=== PATIENT | female | born 1975 | race Caucasian/White ===

== ENCOUNTER → 2022-09-01 09:35 | Outpatient (BNVA) | payer BC, SELFPAY | PROVIDERS: Visit Provider Emergency Medicine | DX: J45.21 Mild intermittent asthma with (acute) exacerbation (principal); R09.02 Hypoxemia | CPT/HCPCS: 71046 ==

== ENCOUNTER 2022-09-01 11:14 | Emergency (ER) | payer BC, SELFPAY ==
[2022-09-01] VITALS (13 sets, daily range): BP systolic 99–116; BP diastolic 52–79; PULSE 90–102; RESP 18–23; TEMP 37.1; O2SAT 89–97; BMI 25.7
[2022-09-01] MEDS: ipratropium-albuterol 3 mL Neb INHALATION (16:37)
[2022-09-01] MEDS: albuterol 2.5 mg/3 mL Neb INHALATION (16:37)
--- NOTE | 2022-09-01 16:39 | ED_ITS ---
HPI - SOB/Dyspnea General: Chief Complaint: Shortness of Breath/Dyspnea Stated Complaint: clinic sent for low O2 Time Seen by Provider: 09/01/22 16:11 History of Present Illness: HPI Narrative: Patient comes in with shortness of breath and asthma exacerbation. States that she had a cold last week, then yesterday into today developed significant shortness of breath. Was seen at the clinic where she had an x-ray done and was told she had a viral illness. She was also hypoxic and referred to the emergency department. On my examination I turned off the supplemental oxygen and her sats remained in the mid 90s on room air throughout the exam. Associated symptoms: Deny abdominal pain, chest pain, fever(s), nausea, p alpitations, polyuria or vomiting Review of Systems Const: Denies: fever(s) or body aches Eyes: Denies: change in vision or blurry vision ENMT: Denies: throat pain or odynophagia Card: Denies: chest pain or palpitations Resp: Reports: dyspnea and productive cough GI: Denies: abdominal pain, nausea or vomiting : Denies: flank pain or dysuria Musc: Denies: neck pain or back pain Skin/Breast: Denies: rash or pruritus Neuro: Denies: headache(s) or numbness in extremities Psych: Denies: anxiety or change in appetite Endo: Denies: polyuria or excessive sweating PFSH ED PFSH: Medical History Asthma Social History Smoking and tobacco status: never smoked Alcohol intake: never Female Reproductive History: Spontaneous abortions: No Physical Exam Const: COMMON NORMALS: no acute distress, patient oriented x3, healthy appe aring and alert HENMT: COMMON NORMALS: normocephalic and atraumatic HEAD & SCALP: normocephalic and atraumatic Eye: COMMON NORMALS: Equal, round and reactive pupils present and EOMs intact bilaterally PUPIL: Yes Equal, round and reactive pupils present Neck/C-Spine: COMMON NORMALS: full ROM and supple Resp: COMMON NORMALS: normal respiratory effort, No retractions and No use of accessory muscles OTHER: Crackles in the right lower lung Cardio: COMMON NORMALS: regular rate and regular rhythm RATE: regular rate RHYTHM: regular rhythm GI: COMMON NORMALS: Normal to inspection, nondistended, normoactive bowel sounds present, Soft to palpation and non-tender PALPATION: Yes Soft to palpation Back/Pelvis: COMMON NORMALS: thoracic and lumbar spine normal to inspection and no thoracic nor lumbar tenderness Extremity: COMMON NORMALS: normal to inspection and full ROM Neuro: COMMON NORMALS: patient oriented x3 SENSORIUM/ORIENTATION: Yes alert Psych: COMMON NORMALS: mental status grossly normal and cooperative Skin: COMMON NORMALS: no rashes or lesions noted and no wounds GENERAL SKIN EXAM: no rashes or lesions noted Course Vital Signs: Vital signs: Vital Signs Temperature 98.7 F 09/01/22 11:19 Pulse Rate 97 09/01/22 16:45 Respiratory Rate 18 09/01/22 16:38 Blood Pressure 100/68 09/01/22 13:56 Pulse Oximetry 93 09/01/22 16:38 Oxygen Delivery Me thod 09/01/22 16:38 Oxygen Flow Rate 3 09/01/22 13:56 MDM - SOB/Dyspnea Medical Decision Making Patient comes in with shortness of breath and asthma exacerbation. States that she had a cold last week, then yesterday into today developed significant shortness of breath. Was seen at the clinic where she had an x-ray done and was told she had a viral illness. She was also hypoxic and referred to the emergency department. On my examination I return to the supplemental oxygen off and her sats remained in the mid 90s on room air throughout the exam. She has crackles in her right lung on auscultation. We will check labs, give neb treatment, steroids, review the x-ray, and reassess. I reviewed the patient's x-ray I am concerned that she has pneumonia in her right lower lung. We will start antibiotics and reassess. On reassessment I talked to the patient about the test results. We will continue antibiotics and discharge with precautions return for worsening or changing symptoms. Her oxygen saturations have been 92 to 93% on room air here throughout her stay. Lab Data 09/01/22 17:20 09/01/22 17:20 Labs/Radiology: Laboratory Results WBC 28.0 10^3/uL (4.0-10.0) H 09/01/22 17:20 RBC 4.77 10^6/uL (4.1-5.3) 09/01/22 17:20 Hgb 15.0 g/dL (11.5-15.3) 09/01/22 17:20 Hct 45.6 % (37.0-47.0) 09/01/22 17:20 MCV 95.6 fl (81-99) 09/01/22 17:20 MCH 31.4 pg (28.0-34.0) 09/01/22 17:20 MCHC 32.9 g/dL (30.0-36.0) 09/01/22 17:20 RDW 12.4 % (12.1-15.1) 09/01/22 17:20 Plt Count 246 10^3/cmm (130-400) 09/01/22 17:20 MPV 10.0 fL (7.4-10.4) 09/01/22 17:20 Neut % (Auto) 88.9 % 09/01/22 17:20 Lymph % (Auto) 6.9 % 09/01/22 17:20 [facility] [place] [facility] % (Auto) 3.0 % 09/01/22 17:20 Eos % (Auto) 0.2 % 09/01/22 17:20 Baso % (Auto) 0.3 % 09/01/22 17:20 Neut # (Auto) 24.93 10^3/uL (1.8-7.7) H 09/01/22 17:20 Lymph # (Auto) 1.9 10^3/uL (0.8-4.8) 09/01/22 17:20 [facility] # (Auto) 0.8 10^3/uL (0.2-0.9) 09/01/22 17:20 Eos # (Auto) 0.1 10^3/uL (0.0-0.8) 09/01/22 17:20 Baso # (Auto) 0.1 10^3/uL (0.0-0.1) 09/01/22 17:20 Nucleated RBC % (auto) 0 % 09/01/22 17:20 Nucleated RBCs # 0.0 /100WBC 09/01/22 17:20 Sodium 133 mmol/L (136-145) L 09/01/22 17:20 Potassium 3.4 mmol/L (3.5-5.1) L 09/01/22 17:20 Chloride 94 mmol/L (98-107) L 09/01/22 17:20 Carbon Dioxide 26 mmol/L (22-29) 09/01/22 17:20 Anion Gap 16.4 (5-19) 09/01/22 17:20 BUN 12 mg/dL (6-20) 09/01/22 17:20 Creatinine 0.5 mg/dL (0.5-0.9) 09/01/22 17:20 GFR Calculation 134.0 mL/min (90-130) H 09/01/22 17:20 Glucose 118 mg/dL (65-115) H 09/01/22 17:20 Calculated Osmolality 277 mOsm/kg (285-295) L 09/01/22 17:20 Calcium 9.2 mg/dL (8.5-10.5) 09/01/22 17:20 Discharge Plan Discharge Patient Disposition: Home Clinical Impression: Community acquired pneumonia Condition: Stable Prescriptions: New levofloxacin 500 mg tablet 500 mg PO DAILY 5 Days Qty: 5 0RF No Action ipratropium-albuterol 0.5 mg-3 mg(2.5 mg base)/3 mL solution for nebulization 3 ml inhalation ONCE Qty: 1 0RF albuterol sulfate 90 mcg/actuation HFA aerosol inhaler 2 puff inhalation Q6H PRN (Reason: shortness of breath or wheezing) Qty: 8.5 3RF [id number] [Bromfed DM] 2-30-10 mg/5 mL syrup 7.5 ml PO Q6H PRN (Reason: cold symptoms) Qty: 160 0RF Discharge Orders: Discharge ED (Routine); Ordered 09/01/22 Ordered By: Mahamed Osullivan Patient Instructions: Community Acquired Pneumonia (ED) Coding Level of Care Code ED Vp Rheumatology for Chg Fwd Exam Comprehensive
[2022-09-01] MEDS: levofloxacin-dextrose 5 % 500 MG/100 ML PREMIX 100 MG IV (17:21)
[2022-09-01 17:32] LABS: Basophils # 0.1 10^3/uL (0.0-0.1); Basophils % 0.3 %; Eosinophils # 0.1 10^3/uL (0.0-0.8); Eosinophils % 0.2 %; Hematocrit 45.6 % (37.0-47.0); Lymphocytes # 1.9 10^3/uL (0.8-4.8); Lymphocytes % 6.9 %; Mean Corpuscular HGB Conc 32.9 g/dL (30.0-36.0); Mean Corpuscular Hemoglobin 31.4 pg (28.0-34.0); Mean Corpuscular Volume 95.6 fl (81-99); Monocytes # 0.8 10^3/uL (0.2-0.9); Neutrophils # 24.93 10^3/uL (1.8-7.7); Neutrophils % 88.9 %; Nucleated Red Blood Cells % 0 %; Platelet Count 246 10^3/cmm (130-400); Red Blood Count 4.77 10^6/uL (4.1-5.3); Red Cell Distribution Width 12.4 % (12.1-15.1)
[2022-09-01 17:50] LABS: Anion Gap 16.4 (5-19); Blood Urea Nitrogen 12 mg/dL (6-20); Calcium 9.2 mg/dL (8.5-10.5); Carbon Dioxide 26 mmol/L (22-29); Chloride 94 mmol/L (98-107); Glucose 118 mg/dL (65-115); Osmolality Calculated 277 mOsm/kg (285-295); Potassium 3.4 mmol/L (3.5-5.1); Sodium 133 mmol/L (136-145)
[2022-09-01] MEDS: ketorolac 30 mg/mL INJ 15 MG IVP (18:48)
== END 2022-09-01 18:55 | disposition home or self-care (01) ==
PROVIDERS: Emergency Provider Emergency Medicine
DX: J18.9 Pneumonia, unspecified organism (principal); Z20.822 Contact with and (suspected) exposure to COVID-19
CPT/HCPCS: 80048; 85025; 87400; 87426; 94640; 96374; 96375; 99284; J1885; J1956; J2930; J7613